=== PATIENT | male | born 1985 | race Asian ===

== ENCOUNTER 2016-09-16 12:04 | Emergency (ER) | payer SELFPAY ==
[~2016-09-16] VITALS: Ht 175.3 cm; Wt 91.0 kg
[2016-09-16 13:11] VITALS: BP 136/80
== END 2016-09-16 14:09 | disposition home or self-care (01) ==
LOC: ER 13:58
DX: K52.9 Noninfective gastroenteritis and colitis, unspecified (principal)
CPT/HCPCS: 99281